=== PATIENT | male | born 1990 | race Caucasian/White ===

== ENCOUNTER 2020-02-20 10:49 | Emergency (ER) | payer MEDICAID, OTHER ==
[~2020-02-20] VITALS: Ht 177.8 cm; Wt 74.0 kg
[2020-02-20 10:59] VITALS: BP 126/87
[2020-02-20] MEDS ORDERED: KETOROLAC 30 MG/1 ML IM ONE (11:30)
[2020-02-20] MEDS ORDERED: KETOROLAC 30 MG/1 ML ONE (11:35)
== END 2020-02-20 11:42 | disposition home or self-care (01) ==
LOC: ED 11:36
DX: K08.89 Other specified disorders of teeth and supporting structures (principal)
CPT/HCPCS: 96372; 99283; J1885

== ENCOUNTER 2020-10-02 08:44 | Emergency (ER) | payer MEDICAID ==
[~2020-10-02] VITALS: Ht 177.8 cm; Wt 82.8 kg
[2020-10-02] MEDS ORDERED: KETOROLAC 30 MG/1 ML ONE (09:18)
[2020-10-02] MEDS ORDERED: AMPICILLIN/SULBACTAM 3 GM in SODIUM CHLORIDE 0.9% 100 ML IV ONE (10:00)
[2020-10-02] MEDS ORDERED: SODIUM CHLORIDE FLUSH 10ML SYR IVF ONE (10:00)
[2020-10-02] MEDS ORDERED: KETOROLAC 30 MG/1 ML IVPush ONE (10:00)
[2020-10-02 10:09] LABS: BASOPHILS % (AUTO) 1 % (0-1); EOSINOPHILS % (AUTO) 0 % (1-7); LYMPHOCYTES % (AUTO) 15 % (22-44); MEAN CORPUSCULAR HEMOGLOBIN 32.1 pg (27.5-34.5); MEAN CORPUSCULAR HGB CONC 34.3 g/dL (33.2-36.2); MEAN PLATELET VOLUME 7.3 fL (7.4-10.4); MONOCYTES % (AUTO) 14 % (2-9); NEUTROPHILS % (AUTO) 70 % (42-75); PLATELET COUNT 211 x10^3/uL (130-400); RED BLOOD COUNT 4.33 x10^6/uL (4.38-5.82); RED CELL DISTRIBUTION WIDTH 13.9 % (9.4-14.8)
[2020-10-02 10:13] LABS: ALBUMIN 3.6 g/dL (3.4-5.0); ANION GAP 7 mmol/L (5-15); CALCIUM 8.5 mg/dL (8.5-10.1); CHLORIDE 107 mmol/L (98-107)
[2020-10-02 10:14] LABS: CREATININE 0.69 mg/dL (0.7-1.3)
[2020-10-02 10:30] LABS: MD NO
--- NOTE | 2020-10-02 10:30 | NUR ---
abx infused. pt resting on stretcher. plan ct face. call walker in reach. as
[2020-10-02] MEDS ORDERED: OMNIPAQUE 350 MG/ML, 75ML BOTTLE ONE (10:42)
--- NOTE | 2020-10-02 11:10 | NUR ---
pt sleeping vss recheck. as
[2020-10-02 11:27] VITALS: BP 136/71
== END 2020-10-02 11:29 | disposition home or self-care (01) ==
LOC: ED 09:48
DX: K02.9 Dental caries, unspecified (principal)
CPT/HCPCS: 36415; 70487; 80048; 82040; 85025; 96365; 96375; 99285; J0295; J1885; Q9967; 99284